=== PATIENT | male | born 1985 | race Caucasian/White ===

== ENCOUNTER 2025-05-16 15:22 | Emergency (ER) | payer OTHER, SELFPAY ==
[2025-05-16 15:53] VITALS: BP 160/73; PULSE 113; RESP 18; TEMP 36.7; O2SAT 98; BMI 21.5
--- NOTE | 2025-05-16 15:54 | ED.GENADULT ---
HPI - General Adult General Chief complaint: Dental/Oral Stated complaint: rt side tooth infection/face swollen Time Seen by Provider: 05/16/25 15:54 Source: patient, RN notes reviewed and old records reviewed Mode of arrival: ambulatory Limitations: no limitations History of Present Illness ED Provider: Anastacia HPI narrative: 39-year-old male presents for evaluation of right upper dental pain and facial pain pain He reports he woke up this morning with swelling to his face which has somewhat improved but is still present. He reports that he has poor teeth in his due to see a dentist pain Denies any fevers or chills Related Data Previous Rx's ?Medication ?Instructions ?Recorded amoxicillin 875 mg-potassium 1 tab PO Q12H #14 tabs 05/16/25 clavulanate 125 mg tablet Allergies Allergy/AdvReac Type Severity Reaction Status Date / Time diphenhydramine (From Allergy Intermediate Seizure Verified 05/16/25 15:55 Benadryl) haloperidol (From Haldol) Allergy Intermediate Seizure Verified 05/16/25 15:55 Review of Systems Constitutional: Constitutional: Denies body ache(s), Denies chills, Denies fever(s) and Denies headache(s) Eyes: Eyes: Denies blurry vision ENT: Denies dizziness, Reports otalgia, Reports facial pain and Denies headache(s) Cardiovascular: Cardiovascular: Denies chest pain and Denies dyspnea on exertion Respiratory: Respiratory: Denies cough and Denies dyspnea on exertion Neurologic: Denies dizziness and Denies headache(s) PMFSH Social History Social History Advance Directives: No Advance Directives Information Provided: No Do you have a plan to hurt others: No Plan Physical Exam ED Vital Signs: Vital Signs - 24 hr 05/16/25 15:53 05/16/25 16:13 Temperature 98.0 F 98.0 F Pulse Rate 113 H 113 H Respiratory Rate 18 18 Blood Pressure 160/73 H 160/73 H Pulse Oximetry 98 98 Oxygen Delivery Method Room Air Room Air BMI result Body Mass Index 21.5 Const General: healthy appearing, comfortable, no acute distress, alert and awake Nutritional Appearance: well nourished Orientation/consciousness: patient oriented x3 HENMT Other: very poor dentition with multiple dental caries. There is mild gingival edema to the right upper molars. There is right-sided facial edema overlying this area as well. No fluctuance or evident abscess intraorally or cutaneously Head: Yes normocephalic and Yes atraumatic Eyes Eyelids: Yes eyelids normal Conjunctivae: conjunctivae normal Sclerae: sclerae normal Corneas: corneas normal Pupils: Equal, round and reactive pupils present EOM: EOMs intact bilaterally Neck Neck: Yes full ROM Resp Effort & Inspection: normal respiratory effort, able to speak in complete sentences and not labored Skin General skin exam: elasticity normal Neuro General: patient oriented x3 Cranial nerves: Yes Equal, round and reactive pupils present and Yes Bilaterally intact EOM present Cognition (Neuro): normal cognition Extrem Other: Moving all extremities well without any obvious deformities Medical Decision Making Medical Decision Making MDM Narrative: 39-year-old male presents for evaluation of right-sided facial pain and swelling. He has very poor dentition and likely a dental infection, there was no evidence of drainable abscess. We will cover with Augmentin. He will follow up with his dentist Differential Diagnosis Differential Diagnoses: The differential diagnosis associated with the presentation includes dental caries Dental abscess Gingivitis Atypical facial pain Discharge Plan Discharge Clinical Impression: Atypical face pain, Dental caries Patient Disposition: Home, Self-Care Instructions: Toothache (ED), Mouth Care (ED) Additional Instructions: take the antibiotic twice daily for 1 week. Use warm compresses as well. You may use ibuprofen/ Tylenol for pain pain It is important that you follow up with a dentist Prescriptions: New amoxicillin-pot clavulanate 875-125 mg tablet 1 tab PO Q12H Qty: 14 0RF Interventions: ED Discharge Assessment Last Done: 05/16/25 16:13 Discharge Date/Time: 05/16/25 16:14 Print Language: Swedish
--- OUTSIDE RECORDS SUMMARY | 2025-05-16 16:10 | XMS_ITS | Clinical Summary ---
Author Organization [facility] Address [address] [place] [address] Phone Care Team Providers Care Stand Up Forklift Operator Name Role Phone Mazin Boyer MD Primary Care Provider Unavaila ble Allergies Active Allergy Reactions Criticality Noted Date Comments Diphenhydramine Hcl 05/10/2024 Haloperidol 05/10/2024 Medications No known medications Active Problems No known active problems Surgical History Surgery Date Site/Laterality Comments OTHER SURGICAL HISTORY PROCEDURE: DENIES PREVIOUS SURGERY Medical History Medical History Date Comments Lumbago 11/12/2014 DX:Lumbago Allergic rhinitis 11/12/2014 DX:Allergic rh initis Tobacco use disorder 11/12/2014 DX:Tobacco use disorder Family History Medical History Relation Name Comments Other: estranged Father Other: healthy Mother Relation Name Status Comments Father Mother Social History Tobacco Use Types Packs/Day Years Used Date Smoking Tobacco: Every Day Cigarettes Alcohol Use Standard Drinks/Week Comments Yes 0 (1 standard drink = 0.6 oz pur e alcohol) Sex and Gender Information Value Date Recorded Sex Assigned at Not on file Legal Sex Male 10:22 PM EST Gender Identity Not on file Sexual Orientation Not on file Last Filed Vital Signs Vital Sign Reading Time Taken Comments Blood Pressure 124/80 09/03/2024 12:39 PM EDT Pulse 90 09/03/2024 12:39 PM EDT Temperature 36.7 C (98.1 F) 09/03/2024 12:39 PM EDT Respiratory Rate 16 09/03/2024 12:39 PM EDT Oxygen Saturation 96% 09/03/2024 12:39 PM EDT Inhaled Oxygen Concentration - - Weight 61.2 kg (135 lb) 09/03/2024 12:39 PM EDT Height 177.8 cm (5' 10 ) 09/03/2024 12:39 PM EDT Body Mass Index 19.37 09/03/2024 12:39 PM EDT Plan of Treatment Health Maintenance Due Date Last Done Comments DTaP,Tdap,and Td Vaccines (1 - Tdap) 2006 Hepatitis B Vaccines (1 of 3 - 19+ 3-dose series) 2006 Pneumococcal Vaccine: Pediat rics (0 to 5 Years) and At-Risk Patients (6 to 49 Years) (1 of 2 - PCV) 2006 HPV Vaccines (1 - 3-dose SCD M series) 2014 Cholesterol Screening (Lipid Panel) 04/22/2022 HIV Screening 04/22/2022 Hepatitis C Screening 04/22/2022 Social Influencers of Health Screening 04/22/2022 Depression Screening 05/21/2024 COVID-19 Vaccine (1 - 2024-2 6 season) 2025 Influenza Vaccine (#1) 2025 RSV Immunization Adult Patie nts (1 - 1-dose 75+ series) 2062 HIB Vaccines Aged Out No longer eligi ble based on patient's age to complete this topic Hepatitis A Vaccines Aged Out No long er eligible based on patient's age to complete this topic IPV Vaccines Aged Out No longer eligi ble based on patient's age to complete this topic MMR Vaccines Aged Out No longer eligi ble based on patient's age to complete this topic Meningococcal ACWY Vaccine Aged Out N o longer eligible based on patient's age to complete this topic Meningococcal B Vaccine Aged Out No l onger eligible based on patient's age to complete this topic RSV Immunization Patients Un cole 20 months Aged Out No longer eligible b ased on patient's age to complete this topic Varicella Vaccines Aged Out No longer eligible based on patient's age to complete this topic Insurance [facility] [employer] Care Teams Stand Up Forklift Operator Relationship Specialty Start Date End Date Mazin Boyer MD Need Updated Address PCP - General Internal Medicine 11/10/14
[2025-05-16 16:13] VITALS: BP 160/73; PULSE 113; RESP 18; TEMP 36.7; O2SAT 98
== END 2025-05-16 16:14 | disposition home or self-care (01) ==
PROVIDERS: Emergency Provider Emergency Medicine; PCP Internal Medicine
DX: G50.1 Atypical facial pain (principal); K02.9 Dental caries, unspecified; K08.89 Other specified disorders of teeth and supporting structures
CPT/HCPCS: 99282